=== PATIENT | male | born 1985 | race Caucasian/White ===

== ENCOUNTER 2018-02-03 10:29 | Emergency (ER) | payer MEDICAID ==
[~2018-02-03] VITALS: Ht 170.2 cm; Wt 77.6 kg
[2018-02-03 12:29] VITALS: BP 122/70
== END 2018-02-03 12:29 | disposition home or self-care (01) ==
LOC: ED 10:29
DX: L03.031 Cellulitis of right toe (principal)
CPT/HCPCS: J2001